=== PATIENT | female | born 1955 | race Two or more races ===

== ENCOUNTER 2022-10-20 07:14 | Outpatient (CLI) | payer OTHER | END 2022-10-20 07:15 | disposition home or self-care (01) | LOC: NUCLEAR 07:14 | PROVIDERS: ATTEND Internal Medicine Cardiovascular Disease | DX: I25.10 Atherosclerotic heart disease of native coronary artery without angina pectoris (principal) | CPT/HCPCS: 78452; 93017; A9500 ==